=== PATIENT | male | born 1980 | race Caucasian/White ===

== ENCOUNTER 2022-10-21 08:43 | Emergency (ER) | payer OTHER, SELFPAY ==
[2022-10-21] VITALS (15 sets, daily range): BP systolic 105–151; BP diastolic 59–81; PULSE 72–104; RESP 16–25; TEMP 36.8; O2SAT 97–100; BMI 25.0
--- NOTE | 2022-10-21 08:44 | DI.CT.S_ITS ---
PROCEDURE: CT HEAD/BRAIN WO CON INDICATIONS: fall, head injury, seizure, neck pain TECHNIQUE: Noncontrast 4.5 mm thick angled axial sections acquired from the foramen magnum to the vertex, with coronal and sagittal reformats. For radiation dose reduction, the following was used: automated exposure control, adjustment of mA and/or kV according to patient size. COMPARISON: None. FINDINGS: Image quality: Excellent. CSF spaces: Basal cisterns are patent. No extra-axial fluid collections. Ventricles are normal in size and shape. Brain: No midline shift. No intracranial masses or hemorrhage. Toney-white matter interface is normal. Skull and face: Right-sided frontoparietal soft tissue contusion. No underlying fracture no radiodense foreign bodies. Sinuses: Visualized sinuses and mastoids are clear. IMPRESSION: 1. 1. No CT evidence of acute intracranial trauma. 2. Small right frontoparietal soft tissue contusion without underlying fracture. Dictated by: Jasmyne Serrano M.D. on 10/21/2022 at 8:30 Approved by: Jasmyne Serrano M.D. on 10/21/2022 at 8:33
--- NOTE | 2022-10-21 08:44 | DI.CT.S_ITS ---
PROCEDURE: CT CERVICAL SPINE WO CON INDICATIONS: fall, head injury, seizure, neck pain TECHNIQUE: Noncontrast 3 mm thick sections acquired from the skull base to the T4 level. Sagittal and coronal reformats were then constructed. For radiation dose reduction, the following was used: automated exposure control, adjustment of mA and/or kV according to patient size. COMPARISON: None. FINDINGS: Image quality: Excellent. Bones: No fractures or dislocations. Posterior degenerative endplate osteophytes C3-4. Mild uncovertebral joint hypertrophy at this level. Mild degenerative disc height loss anteriorly at C5-6. Visualized superior ribs are intact. Soft tissues: Prevertebral soft tissues are normal in thickness. No paravertebral hematomas. No apical pneumothoraces. IMPRESSION: 1. No CT evidence of acute cervical spine trauma. 2. Minor degenerative changes. Dictated by: Jasmyne Serrano M.D. on 10/21/2022 at 8:34 Approved by: Jasmyne Serrano M.D. on 10/21/2022 at 8:36
[2022-10-21] MEDS: SODIUM CHLORIDE 0.9% 1,000 ML 1000 ML IV (08:55)
[2022-10-21] MEDS: ONDANSETRON 4 MG/2 ML INJ (08:56)
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
[2022-10-21 09:14] LABS: Add Manual Diff / Slide Review NO; Basophils Absolute Auto 100 /uL (0-100); Basophils Percent Auto 0.7 % (0-2); Eosinophils Absolute Auto 200 /uL (0-450); Eosinophils Percent Auto 1.7 % (2-4); Hematocrit 45.9 % (41-53); Hemoglobin 16.1 g/dL (13.5-17.5); Lymphocytes Absolute Auto 6400 /uL (1100-4500); Lymphocytes Percent Auto 50.4 % (25-40); Mean Corpuscular HGB Conc 35.2 % (30-36); Mean Corpuscular Hemoglobin 29.3 PG (26-34); Mean Corpuscular Volume 83.4 fL (80-100); Monocytes Absolute Auto 1300 /uL (0-900); Monocytes Percent Auto 10.4 % (3-14); Neutrophils Absolute Auto 4700 /uL (1500-7000); Neutrophils Percent Auto 36.8 % (50-75); Platelet Count 259 X10^3/uL (150-400); Red Cell Distribution Width 12.6 % (11.6-14.8); White Blood Cell Count 12.8 X10^3/uL (4.5-11.0)
[2022-10-21 09:16] LABS: Albumin 4.9 g/dL (3.5-5.0); Albumin Globulin Ratio 1.8 (1.0-2.8); Alkaline Phosphatase 66 U/L (38-126); Aspartate Aminotransferase 35 IU/L (17-59); BUN Creatinine Ratio 12.2 (6-22); Bilirubin Total 0.9 mg/dL (0.2-1.3); Blood Urea Nitrogen 12 mg/dL (9-20); Calcium 9.1 mg/dL (8.4-10.2); Carbon Dioxide 14 mmol/L (22-32); Chloride 102 mmol/L (98-107); Creatine Kinase 94 U/L (55-170); Estimated Glomerular Filt Rate > 60 mL/min (>60); Globulin 2.8 g/dL (1.7-4.1); Glucose 135 mg/dL (70-100); HEMOLYSIS < 15 (0-50); Sodium 137 mmol/L (137-145); Total Protein 7.7 g/dL (6.3-8.2)
[2022-10-21 09:17] LABS: Ethanol (ETOH) < 10 mg/dL; Magnesium 2.5 mg/dL (1.6-2.3)
[2022-10-21 09:20] LABS: Lactate (Lactic Acid) 11.3 mmol/L (0.7-2.1)
[2022-10-21 09:23] LABS: Alanine Aminotransferase 48 IU/L (<50)
[2022-10-21 09:27] LABS: Troponin I < 0.012 ng/mL (0.01-0.034)
[2022-10-21 10:58] LABS: Reflexed Lactate in 2 Hours Y
[2022-10-21 10:59] LABS: UR Morphine/Opiate cutoff 300 Negative (Negative); Ur Creatinine Normal (Normal); Ur Specific Gravity Normal (Normal); Urine Amphetamines Negative (Negative); Urine Barbiturates Negative (Negative); Urine Benzodiazepines Negative (Negative); Urine Cocaine Negative (Negative); Urine MDMA Negative (Negative); Urine Methadone Negative (Negative); Urine Methamphetamines Negative (Negative); Urine Oxycodone Negative (Negative); Urine Phencyclidine Negative (Negative); Urine Tetrahydrocannabinol Negative (Negative); Urine Tricyclic Antidepressant Negative (Negative); Urine pH Normal (Normal)
[2022-10-21 11:16] LABS: RBC Urine 0-1/HPF (0-5/HPF)
[2022-10-21 11:17] LABS: Bacteria Urine Few (2-10); Squamous Epithelial Cell Urine 0-1 /HPF (0-5/HPF)
[2022-10-21 11:19] LABS: Hyaline Casts Urine 0-1/LPF; Mucus Urine 1+ (Negative); WBC Urine 1-5/HPF (0-5/HPF)
[2022-10-21] MEDS: POTASSIUM CHLORIDE 20 MEQ/15 ML UDC 40 MEQ PO (11:37)
[2022-10-21 11:42] LABS: Lactate 2HR (Lactic Acid Rflx) 1.9 mmol/L (0.7-2.1)
== END 2022-10-21 12:28 | disposition home or self-care (01) ==
PROVIDERS: Emergency Provider Emergency Medicine
DX: S01.01XA Laceration without foreign body of scalp, initial encounter (principal); R56.9 Unspecified convulsions; E87.6 Hypokalemia; W18.30XA Fall on same level, unspecified, initial encounter
CPT/HCPCS: 12002; 36415; 70450; 72125; 80053; 80305; 80320; 81003; 81015; 82550; 83605; 83735; 84484; 85025; 87086; 93005; 93010; 99284; J2405